=== PATIENT | male | born 1975 | race Caucasian/White ===

== ENCOUNTER → 2018-07-15 16:50 | Outpatient (CLI) | payer OTHER, MEDICAID, SELFPAY ==
[2018-07-15 19:01] LABS: HIV 1 and 2 Antibody NEGATIVE (NEGATIVE); Hep C Virus Ab w/Reflex Quant NEGATIVE s/c (NEGATIVE); Hepatitis B Surface Antigen NEGATIVE s/c (NEGATIVE)
[2018-07-15 20:04] LABS: Urine N gonorrhoeae NOT DETECTED
[2018-07-15 20:22] LABS: Urine Chlamydia NOT DETECTED
[2018-07-18 20:34] LABS: Rapid Plasma Reagin NON-REACTIVE
== END ==
PROVIDERS: Visit Provider Physician Assistant
DX: Z11.3 Encounter for screening for infections with a predominantly sexual mode of transmission (principal)
CPT/HCPCS: 36415; 86592; 86703; 86803; 87340; 87491; 87591